=== PATIENT | male | born 1970 | race Caucasian/White ===

== ENCOUNTER 2021-10-08 09:50 | Emergency (ER) | payer SELFPAY ==
[2021-10-08 09:57] VITALS: BP 159/79; PULSE 74; RESP 14; TEMP 36.7; O2SAT 99
--- NOTE | 2021-10-08 10:35 | ED.SKABFB ---
HPI - Skin/Abscess/Foreign Bdy General Chief complaint: Skin/Abscess/Foreign Body Stated complaint: Abcess on stomach Time Seen by Provider: 10/08/21 10:35 Source: patient, RN notes reviewed and old records reviewed Mode of arrival: ambulatory Limitations: no limitations History of Present Illness HPI narrative: 51 year old male accompanied by friend presents to express care with complaints of 1 week duration of what he though was initially an ingrown hair to his right lower abdomen. Patient has 2cm X 1cm area of center red bruised tissue with some clear serous drainage noted with surrounding redness of tissue which is warm,firm, and tender with no induration of tissue. Patient states that he tried opening area up with knife and only got bloody drainage. Patient denies any fevers chills or sweats. Patient reports no COVID or Flu immunization. Patient states that he has used PRID to area. MD complaint: abscess/boil Onset (ago): week(s) (1) Related Data Home Medications Medication Instructions Recorded Confirmed lisinopril 10 mg PO DAILY 10/08/21 10/08/21 Allergies Allergy/AdvReac Type Severity Reaction Status Date / Time No Known Allergies Allergy Verified 10/08/21 10:05 Review of Systems Review of Systems: CONSTITUTIONAL: Denies fever, chills, or sweats. EYES: Denies visual changes, redness, or discharge. ENT: Denies rhinorrhea, congestion, sore throat, or otalgia. CARDIOVASCULAR: Denies chest pain, palpitations, or edema. RESPIRATORY: Denies cough or dyspnea. GASTROINTESTINAL: Denies abdominal pain, nausea, vomiting, or diarrhea. GENITOURINARY: Denies dysuria or hematuria. SKIN: Positive for red inflamed tissue to right lower abdomen area with center 2cm X1cm area of shiny red tissue MUSCULOSKELETAL: Denies back pain, joint pain, or myalgia. NEUROLOGIC: Denies headache, numbness, or weakness. PSYCHIATRIC: Denies anxiety or depression. All systems reviewed & are unremarkable except as noted in HPI and below PMFSH Past Medical History Medical History (Updated 10/09/21 @ 00:01 by Reagan Hastings) Hypertension Surgical History Surgical History (Updated 10/09/21 @ 12:16 by Elena Villagomez NP) No history of previous surgery Social History Social History (Updated 10/09/21 @ 12:19 by Elena Villagomez NP) Smoking status: Never smoker Comments At time of signature, agree with nursing past medical, surgical, social and family history. There is no relevant family history pertinent to the presenting complaint Exam Narrative: GENERAL: Well-appearing, well-nourished, and in mild acute distress. HEAD: Normocephalic, atraumatic. EYES: PERRLA and EOMI. ENT: Nares clear, no rhinorrhea or epistaxis. Mucous membranes moist.TM's normal with good light reflex, throat normal with no lesions or exudates no tonsil enlargement. NECK: Supple.no lymphadenopathy CHEST: Clear to auscultation. No respiratory distress.no cough noted SAO2 99% on room air HEART: Regular rate and rhythm. No murmur heard. Normal peripheral pulses. ABDOMEN: Soft, nontender, nondistended, normal active bowel sounds. EXTREMITIES: Normal range of motion. No edema. SKIN: Warm, dry, right lower abdomen 2cm X1cm center area of of red shiny bruised tissue with some serous drainage noted which was cultured, surrounding tissue is red, tender firm and warm with no induration noted. NEURO: No focal deficits. Alert and oriented x3. Course Course Level of Care: Express Care Visit Vital Signs Vital signs: Vital Signs Temperature 36.7 C 10/08/21 09:57 Pulse Rate 74 10/08/21 09:57 Respiratory Rate 14 10/08/21 09:57 Blood Pressure 159/79 H 10/08/21 09:57 Pulse Oximetry 99 10/08/21 09:57 Temperature 36.7 C 10/08/21 09:57 Pulse Rate 74 10/08/21 09:57 Respiratory Rate 14 10/08/21 09:57 Blood Pressure 159/79 H 10/08/21 09:57 Pulse Oximetry 99 10/08/21 09:57 MDM - Skin/Abscess/Foreign Bdy Differential Diagnosis Differenti
== END 2021-10-08 11:01 | disposition home or self-care (01) ==
PROVIDERS: Emergency Provider Registered Nurse
DX: L02.211 Cutaneous abscess of abdominal wall (principal); I10 Essential (primary) hypertension
CPT/HCPCS: 87070; 87147; 87186; 87205; 99213; G0463